=== PATIENT | female | born 1960 | race Caucasian/White ===

== ENCOUNTER 2018-11-29 12:10 | Emergency (ER) | payer OTHER, SELFPAY ==
[2018-11-29 12:23] VITALS: BP 135/79; PULSE 94; RESP 18; TEMP 36.9; O2SAT 97
--- NOTE | 2018-11-29 13:23 | W.ED.GENAD ---
Discharge Plan Disposition Patient Disposition: HOME Discharge Details Chief Complaint: Cellulitis Clinical Impression: Cellulitis and abscess of upper arm and forearm [facility]: [facility] Home Meds and New Rx's Prescriptions: New cephalexin [Keflex] 500 mg capsule 500 mg PO QID Qty: 39 RF: 0 sulfamethoxazole-trimethoprim [Bactrim DS] 800-160 mg tablet 1 tab PO DAILY Qty: 19 RF: 0 Continued sertraline 100 mg Tablet 100 mg PO DAILY RF: 0 pravastatin 20 mg Tablet 20 mg PO DAILY RF: 0 pyridoxine (vitamin B6) [Vitamin B-6] 100 mg Tablet 100 mg PO DAILY RF: 0 Discharge Instructions Instructions: Abscess (ED) Additional Instructions: Please take full course of antibiotics as prescribed. Please contact your primary care physician to arrange follow-up. Call for an appointment. Return to the ER for any worsening or new concerning symptoms. Medical Decision Making 13:25 --58-year-old female here with abscess and cellulitis of her left elbow. Will give ibuprofen and Tylenol. LMX applied and plan for incision and drainage. I will treat with Keflex and Bactrim. I reviewed penicillin allergy with the patient -she notes that she is taken amoxicillin and upset her stomach. No anaphylaxis. Patient provided informed consent to treat as outlined. 14:10 --incision and drainage performed. Patient has tolerated Keflex and Bactrim with no allergic response. Plan is to discharge patient on Keflex and Bactrim, warm soaks, and have her follow-up with her primary care physician. Discharge instructions were reviewed with the patient and her . Patient was encouraged to return for any worsening or new concerning symptoms. HPI General Mode of arrival: ambulatory. Date/Time Provider Initiated Documentation: 11/29/18 12:56. Limitations to Documentation: no limitations. Information obtained by: patient. HPI Narrative: 58-year-old female presents with chief complaint of infection. Patient notes inflammation left elbow started on 10/23/2018. She suspects she was bitten by a fly. Inflammation has worsened and she developed a draining lesion with surrounding redness. She has associated swelling and tenderness. Inflammation is moderate. No modifiers. No associated fever. Related Data Home Medications Medication Instructions Recorded Confirmed cephalexin [Keflex] 500 mg PO QID #39 cap 11/29/18 pravastatin 20 mg PO DAILY 11/29/18 11/29/18 pyridoxine (vitamin B6) [Vitamin 100 mg PO DAILY 11/29/18 11/29/18 B-6] sertraline 100 mg PO DAILY 11/29/18 11/29/18 sulfamethoxazole-trimethoprim 1 tab PO DAILY #19 tab 11/29/18 [Bactrim DS] Previous Rx's Medication Instructions Recorded cephalexin [Keflex] 500 mg PO QID #39 cap 11/29/18 sulfamethoxazole-trimethoprim 1 tab PO DAILY #19 tab 11/29/18 [Bactrim DS] Allergies Allergy/AdvReac Type Severity Reaction Status Date / Time Penicillins Allergy Unknown Unverified 11/29/18 12:21 amoxicillin AdvReac Nausea Unverified 11/29/18 12:21 General Stated Complaint: Cellulitis OLIVIER: 4 Review of Systems Constitutional Denies fever(s) Integumentary/Breasts Reports as per HPI [facility] Social History Smoking/Tobacco Use Status: Never Alcohol Intake: current Alcohol Intake frequency: a few times a month Drug use: Never Do you feel safe at home: Yes Do you feel safe in your relationship?: Yes Exam Const General: cooperative and no acute distress HENMT Mouth: moist mucous membranes Eyes Conjunctivae: normal conjunctivae Sclera: normal sclerae Neck Neck: trachea midline and supple Resp Auscultation: clear to auscultation bilaterally, no rales, no rhonchi and no wheezes Cardio Jugular venous pressure: no JVD Rate: regular rate and not tachycardic Rhythm: regular rhythm Heart Sounds: murmur systolic (known to patient) II/ Skin Rashes: rashes noted (Left posterior elbow erythema with central abscess, indurated) Extrem General: no edema and other (Compartments of left arm and forearm soft and nontender) Left upper extremity: full ROM, no joint enlargement and elbow/forearm Details: warmth and other (Cellulitis and abscess as noted above) Course Vital Signs Temperature 36.9 C 11/29/18 12:23 Pulse 94 H 11/29/18 12:23 Respiratory Rate 18 11/29/18 12:23 Blood Pressure 135/79 11/29/18 12:23 Pulse Oximetry 97 11/29/18 12:23 Temperature 36.9 C 11/29/18 12:23 Temperature Source Temporal Artery Scan 11/29/18 12:23 Pulse 94 H 11/29/18 12:23 Respiratory Rate 18 11/29/18 12:23 Respiratory Effort Non-Labored 11/29/18 12:28 Blood Pressure 135/79 11/29/18 12:23 Blood Pressure Position Sitting 11/29/18 12:23 Pulse Oximetry 97 11/29/18 12:23 Oxygen Delivery Method Room Air 11/29/18 12:23 Oxygen Flow Rate 0 11/29/18 12:23 Pain Level 8 11/29/18 12:23 Procedures Abscess I/D Site: Upper Extremity Side (if applicable): Left Local Anesthetic: Other Anesthetic (LMX) Technique: Incised with #11 Blade (1cm and 0.5cm incisions) Amount of fluid expressed (mL): 1 Irrigation: No Complications: Pain
--- NOTE | 2018-11-29 13:28 | ED.GENADUL_ITS ---
Discharge Plan Disposition Patient Disposition: HOME Discharge Details Chief Complaint: Cellulitis Clinical Impression: Cellulitis and abscess of upper arm and forearm [facility] Home Meds and New Rx's Prescriptions: New cephalexin [Keflex] 500 mg capsule 500 mg PO QID Qty: 39 RF: 0 sulfamethoxazole-trimethoprim [Bactrim DS] 800-160 mg tablet 1 tab PO DAILY Qty: 19 RF: 0 Continued sertraline 100 mg Tablet 100 mg PO DAILY RF: 0 pravastatin 20 mg Tablet 20 mg PO DAILY RF: 0 pyridoxine (vitamin B6) [Vitamin B-6] 100 mg Tablet 100 mg PO DAILY RF: 0 Discharge Instructions Instructions: Abscess (ED) Additional Instructions: Please take full course of antibiotics as prescribed. Please contact your primary care physician to arrange follow-up. Call for an appointment. Return to the ER for any worsening or new concerning symptoms. Medical Decision Making 13:25 --58-year-old female here with abscess and cellulitis of her left elbow. Will give ibuprofen and Tylenol. LMX applied and plan for incision and drainage. I will treat with Keflex and Bactrim. I reviewed penicillin allergy with the patient -she notes that she is taken amoxicillin and upset her stomach. No anaphylaxis. Patient provided informed consent to treat as outlined. 14:10 --incision and drainage performed. Patient has tolerated Keflex and Bactrim with no allergic response. Plan is to discharge patient on Keflex and Bactrim, warm soaks, and have her follow-up with her primary care physician. Discharge instructions were reviewed with the patient and her . Patient was encouraged to return for any worsening or new concerning symptoms. HPI General Mode of arrival: ambulatory . Date/Time Provider Initiated Documentation: 11/29/18 12:56 . Limitations to Documentation: no limitations . Information obtained by: patient . HPI Narrative: 58-year-old female presents with chief complaint of infection. Patient notes inflammation left elbow started on 10/23/2018. She suspects she was bitten by a fly. Inflammation has worsened and she developed a draining lesion with surrounding redness. She has associated swelling and tenderness. Inflammation is moderate. No modifiers. No associated fever. Related Data Home Medications Medication Instructions Recorded Confirmed cephalexin [Keflex] 500 mg PO QID #39 cap 11/29/18 pravastatin 20 mg PO DAILY 11/29/18 11/29/18 pyridoxine (vitamin B6) [Vitamin 100 mg PO DAILY 11/29/18 11/29/18 B-6] sertraline 100 mg PO DAILY 11/29/18 11/29/18 sulfamethoxazole-trimethoprim 1 tab PO DAILY #19 tab 11/29/18 [Bactrim DS] Previous Rx's Medication Instructions Recorded cephalexin [Keflex] 500 mg PO QID #39 cap 11/29/18 sulfamethoxazole-trimethoprim 1 tab PO DAILY #19 tab 11/29/18 [Bactrim DS] Allergies Allergy/AdvReac Type Severity Reaction Status Date / Time Penicillins Allergy Unknown Unverified 11/29/18 12:21 amoxicillin AdvReac Nausea Unverified 11/29/18 12:21 General Stated Complaint: Cellulitis OLIVIER: 4 Review of Systems Constitutional Denies fever(s) Integumentary/Breasts Reports as per HPI [facility] Social History Smoking/Tobacco Use Status: Never Alcohol Intake: current Alcohol Intake frequency: a few times a month Drug use: Never Do you feel safe at home: Yes Do you feel safe in your relationship?: Yes Exam Const General: cooperative and no acute distress HENMT Mouth: moist mucous membranes Eyes Conjunctivae: normal conjunctivae Sclera: normal sclerae Neck Neck: trachea midline and supple Resp Auscultation: clear to auscultation bilaterally, no rales, no rhonchi and no wheezes Cardio Jugular venous pressure: no JVD Rate: regular rate and not tachycardic Rhythm: regular rhythm Heart Sounds: murmur systolic (known to patient) II/ Skin Rashes: rashes noted (Left posterior elbow erythema with central abscess, indurated) Extrem General: no edema and other (Compartments of left arm and forearm soft and nontender) Left upper extremity: full ROM, no joint enlargement and elbow/forearm Details: warmth and other (Cellulitis and abscess as noted above) Course Vital Signs Temperature 36.9 C 11/29/18 12:23 Pulse 94 H 11/29/18 12:23 Respiratory Rate 18 11/29/18 12:23 Blood Pressure 135/79 11/29/18 12:23 Pulse Oximetry 97 11/29/18 12:23 Temperature 36.9 C 11/29/18 12:23 Temperature Source Temporal Artery Scan 11/29/18 12:23 Pulse 94 H 11/29/18 12:23 Respiratory Rate 18 11/29/18 12:23 Respiratory Effort Non-Labored 11/29/18 12:28 Blood Pressure 135/79 11/29/18 12:23 Blood Pressure Position Sitting 11/29/18 12:23 Pulse Oximetry 97 11/29/18 12:23 Oxygen Delivery Method Room Air 11/29/18 12:23 Oxygen Flow Rate 0 11/29/18 12:23 Pain Level 8 11/29/18 12:23 Procedures Abscess I/D Site: Upper Extremity Side (if applicable): Left Local Anesthetic: Other Anesthetic (LMX) Technique: Incised with #11 Blade (1cm and 0.5cm incisions) Amount of fluid expressed (mL): 1 Irrigation: No Complications: Pain
[2018-11-29] MEDS: Lidocaine 4% Cream 5 GM TUBE TP (13:29)
[2018-11-29] MEDS: Sulfameth/Trimeth DS TAB 1 TAB PO (13:29)
[2018-11-29] MEDS: Acetaminophen 325 MG TAB 650 MG PO (13:29)
[2018-11-29] MEDS: Ibuprofen 600 MG TAB PO (13:29)
[2018-11-29] MEDS: Cephalexin 500 MG CAP PO (13:30)
[2018-11-29 14:10] VITALS: BP 130/87; PULSE 90; RESP 18; TEMP 37; O2SAT 95
== END 2018-11-29 14:24 | disposition home or self-care (01) ==
PROVIDERS: Emergency Provider Student in an Organized Health Care Education/Training Program
DX: L03.114 Cellulitis of left upper limb (principal); L02.414 Cutaneous abscess of left upper limb; B95.62 Methicillin resistant Staphylococcus aureus infection as the cause of diseases classified elsewhere
CPT/HCPCS: 10060; 87077; 87070; 87186; 87205

== ENCOUNTER 2019-03-03 14:34 | Emergency (ER) | payer OTHER, SELFPAY ==
[2019-03-03 14:40] VITALS: BP 132/73; PULSE 80; RESP 16; TEMP 36.8; O2SAT 99
--- NOTE | 2019-03-03 15:06 | ED.GENADUL_ITS ---
Discharge Plan Disposition Patient Disposition: HOME Condition: Stable Discharge Details Chief Complaint: RashLesion Clinical Impression: Abscess of back Primary Care Provider: Nasreen,Local ED Provider: Eddie Freedman Home Meds and New Rx's Prescriptions: New sulfamethoxazole-trimethoprim [Bactrim DS] 800-160 mg tablet 1 tab PO BID Qty: 10 RF: 0 Continued sertraline 100 mg Tablet 100 mg PO DAILY RF: 0 pravastatin 20 mg Tablet 20 mg PO DAILY RF: 0 pyridoxine (vitamin B6) [Vitamin B-6] 100 mg Tablet 100 mg PO DAILY RF: 0 Discharge Instructions Instructions: Abscess (ED) Additional Instructions: you have an appointment with Dr. Dennis from general surgery this Sunday at 11:30 if you develop high fevers, severe pain or redness that spreads away from the area return to the emergency department Medical Decision Making 58 yo female comes in with left upper back rash since last Sunday that she states started to drain pus like material. Denies fever or sytsemic symptoms and appears well systemically so doubt entities sucha s nec fasc or sepsis and has no severe pain. HAs 2x4cm of erythema that is warm to touch in the left upper back. In the middle of this is fluctuance and after verbal consent and under sterile technique I incised with an 11 blade scalpel and had pus like material come out of it Differential Diagnosis Differential Diagnosis: abscess, cellulitis HPI General Mode of arrival: ambulatory . Date/Time Provider Initiated Documentation: 03/03/19 14:47 . Limitations to Documentation: no limitations . Information obtained by: patient . History of Present Illness 58 year old F presents to the emergency department with the chief complaint of rash on left upper back, described as moderate, Quality is described as aching, and is localized to the back. Patient reports no radiation. Patient started experiencing this day(s) (5) and it has been constant. No relieving factors improve symptom(s), No exacerbating factors reported . Patient notes no other symptoms.. Patient did receive the following treatments prior to arrival, none Related Data Home Medications Medication Instructions Recorded Confirmed pravastatin 20 mg PO DAILY 11/29/18 03/03/19 pyridoxine (vitamin B6) [Vitamin 100 mg PO DAILY 11/29/18 03/03/19 B-6] sertraline 100 mg PO DAILY 11/29/18 03/03/19 sulfamethoxazole-trimethoprim 1 tab PO BID #10 tab 03/03/19 [Bactrim DS] Previous Rx's Medication Instructions Recorded sulfamethoxazole-trimethoprim 1 tab PO BID #10 tab 03/03/19 [Bactrim DS] Allergies Allergy/AdvReac Type Severity Reaction Status Date / Time Penicillins Allergy Unknown Unverified 03/03/19 14:44 amoxicillin AdvReac Nausea Unverified 03/03/19 14:44 General Stated Complaint: RashLesion OLIVIER: 4 Review of Systems Review of Systems ROS Unobtainable: All systems reviewed & are unremarkable except as noted in HPI and below Constitutional Constitutional: Denies chills, Denies fever(s) and Denies weakness ENT Ears, Nose, Mouth, and Throat: Denies change in voice Cardiovascular Cardiovascular: Denies chest pain and Denies dyspnea Respiratory Respiratory: Denies dyspnea Gastrointestinal Gastrointestinal: Denies abdominal pain, Denies nausea and Denies vomiting Musculoskeletal Musculoskeletal: Denies joint swelling Neurologic Neurologic: Denies weakness PFS Social History Smoking/Tobacco Use Status: Never Alcohol Intake: current Alcohol Intake frequency: a few times a month Drug use: Never Do you feel safe at home: Yes Do you feel safe in your relationship?: Yes Exam Const General: no acute distress Orientation: alert HENMT Head: normal to inspection Ears: external ears normal General nose exam: external nose normal Mouth: moist mucous membranes Eyes General: appearance normal, both eyes and all related structures Neck Neck: normal visual inspection Resp Effort & Inspection: normal respiratory effort and able to speak in complete sentences Cardio Rate: regular rate Skin General skin exam: elasticity normal Neuro General: alert and oriented x3 Extrem General: normal to inspection Psych Mental Status: mental status grossly normal Course Vital Signs Vital signs: Vital Signs Temperature 36.8 C 03/03/19 14:40 Pulse 80 03/03/19 14:40 Respiratory Rate 16 03/03/19 14:40 Blood Pressure 132/73 03/03/19 14:40 Pulse Oximetry 99 03/03/19 14:40 Temperature 36.8 C 03/03/19 14:40 Temperature Source Skin 03/03/19 14:40 Pulse 80 03/03/19 14:40 Respiratory Rate 16 03/03/19 14:40 Respiratory Effort 03/03/19 14:44 Blood Pressure 132/73 03/03/19 14:40 Blood Pressure Position Sitting 03/03/19 14:40 Pulse Oximetry 99 03/03/19 14:40 Oxygen Delivery Method Room Air 03/03/19 14:40 Oxygen Flow Rate 0 03/03/19 14:40 Pain Level 9 03/03/19 14:40 Comment states it is sore 03/03/19 14:40 Procedures Abscess I/D Site: Back Side (if applicable): Left Local Anesthetic: Lidocaine 1% Amount of anesthesia used (mL): 5 Technique: Incised with #11 Blade Amount of fluid expressed (mL): 6 Irrigation: Yes Packing used?: None
[2019-03-03 15:12] VITALS: BP 132/82; PULSE 82; RESP 16; TEMP 36.7; O2SAT 96
== END 2019-03-03 15:23 | disposition home or self-care (01) ==
PROVIDERS: Emergency Provider Emergency Medicine
DX: L02.212 Cutaneous abscess of back [any part, except buttock and flank] (principal)
CPT/HCPCS: 10060; 99283

== ENCOUNTER 2019-03-05 12:16 | Outpatient (REF) | payer OTHER, SELFPAY | END 2019-03-05 12:36 | LOC: LBN 12:16 | PROVIDERS: Visit Provider Surgery | DX: L08.89 Other specified local infections of the skin and subcutaneous tissue (principal) | CPT/HCPCS: 87077; 87070; 87186 ==

== ENCOUNTER 2019-03-12 01:50 | Outpatient (RCR) | payer OTHER, SELFPAY ==
[2019-03-05 13:51] LABS: BUN 10 mg/dL (7-18); CREATININE 0.85 mg/dL (0.55-1.02)
[2019-03-05] MEDS: Normal Saline Flush 10 ML SYR 20 ML IVP (15:12)
[2019-03-06] MEDS: Normal Saline Flush 10 ML SYR 20 ML IVP (08:06)
[2019-03-07 08:53] LABS: Vancomycin, Trough 12.4 ug/mL (10.0-20.0)
[2019-03-07] MEDS: Normal Saline Flush 10 ML SYR IVP (09:04)
[2019-03-07] MEDS: VANCOMYCIN 1,250 MG in Normal Saline 250 ML 166.667 MG IVPB (20:00)
[2019-03-08] MEDS: Normal Saline Flush 10 ML SYR IVP (08:04)
[2019-03-08] MEDS: VANCOMYCIN 1,250 MG in Normal Saline 250 ML 166.667 MG IVPB (08:04)
[2019-03-08] MEDS: VANCOMYCIN 1,250 MG in Normal Saline 250 ML 167 MG IVPB (19:58)
[2019-03-08] MEDS: Normal Saline Flush 10 ML SYR 20 ML IVP (19:59)
[2019-03-09] MEDS: Normal Saline Flush 10 ML SYR IVP ×2 (07:59→21:40)
[2019-03-09] MEDS: VANCOMYCIN 1,250 MG in Normal Saline 250 ML 166 MG IVPB (07:59)
[2019-03-09] MEDS: VANCOMYCIN 1,250 MG in Normal Saline 250 ML 167 MG IVPB (19:51)
[2019-03-10] MEDS: Normal Saline Flush 10 ML SYR 20 ML IVP ×2 (08:00→20:13)
[2019-03-10 08:34] LABS: Vancomycin, Trough 19.5 ug/mL (10.0-20.0)
[2019-03-10] MEDS: VANCOMYCIN 1,250 MG in Normal Saline 250 ML 167 MG IVPB (08:49)
[2019-03-10 20:17] VITALS: BP 131/79; PULSE 86; RESP 18; TEMP 36.8; O2SAT 98
[2019-03-11] MEDS: Normal Saline Flush 10 ML SYR 20 ML IVP ×2 (08:19→21:43)
[2019-03-12] MEDS: Normal Saline Flush 10 ML SYR 20 ML IVP (08:40)
--- NOTE | 2019-03-12 15:04 | NUR.NOTE ---
Nursing Note: Dr Bocanegra office called regarding pt's midline and/or continuing treatment since patients scheduled last dose is tonight. Con @ Dr Bocanegra office states pt is done with treatment and Dr Bocanegra pulled the midline.
== END 2019-03-27 23:59 | disposition home or self-care (01) ==
LOC: INF 01:50
PROVIDERS: Visit Provider Surgery
DX: L02.212 Cutaneous abscess of back [any part, except buttock and flank] (principal)
CPT/HCPCS: 36569; 36592; 84520; 96365; 96366; 80202; 82565; J3370

== ENCOUNTER 2025-02-06 16:33 | Outpatient (CLI) | payer OTHER, SELFPAY ==
[2025-02-06 12:58] LABS: Anion Gap 6.9 mmol/L (3-11); BUN 19 mg/dL (7-18); CO2 29.1 mmol/L (21.0-32.0); Calcium 9.2 mg/dL (8.5-10.1); Chloride 106 mmol/L (98-107); Estimated GFR 96.52 (mL/min/1.73m2); Glucose 100 mg/dL (74-106); Magnesium 1.8 mg/dL (1.8-2.4); Potassium 4.3 mmol/L (3.5-5.1); Sodium 142 mmol/L (136-145)
== END 2025-02-06 16:34 | disposition home or self-care (01) ==
PROVIDERS: Visit Provider Family Medicine
DX: E87.5 Hyperkalemia (principal)
CPT/HCPCS: 36415; 80048; 83735